=== PATIENT | male | born 1965 | race Caucasian/White ===

== ENCOUNTER 2023-12-16 15:55 | Emergency (ER) | payer MEDICARE, OTHER, SELFPAY ==
[2023-12-16 15:59] VITALS: BP 96/72
[2023-12-16 16:00] VITALS: BP 96/72
[2023-12-16 16:04] LABS: Glucose - Point of Care 91 mg/dl (70-99)
[2023-12-16 16:12] LABS: % Basophils 0.4 % (0-2); % Immature Granulocytes 0.4 % (0-0.5); % Lymphocytes 13.6 % (20.5-51.1); % Monocytes 11.5 % (1.7-9.3); % Neutrophils 72.1 % (42.2-75.2); Absolute Eosinophils 0.1 10^3/uL (0-0.7); Absolute Lymphocytes 0.7 10^3/uL (1.2-3.4); Absolute Monocytes 0.6 10^3/uL (0.1-0.6); Absolute Neutrophils 3.9 10^3/uL (1.4-6.5); Hematocrit 33.9 % (39.0-52.0); Hemoglobin 11.1 g/dL (13.0-18.0); Mean Corp Hgb Conc. 32.7 g/dL (33.0-37.0); Mean Corpuscular Hgb 29.9 pg (27.0-31.0); Mean Corpuscular Volume 91.4 fL (80.0-94.0); Mean Platelet Volume 10.2 fL (7.4-10.4); Nucleated Red Blood Cells % 0 % (-); Platelet Count 163 10^3/uL (130-400); Red Blood Cell Count 3.71 10^6/uL (4.70-6.10); Red Cell Dist. Width 18.9 % (11.5-14.5); White Blood Cell Count 5.5 10^3/uL (4.8-10.8)
[2023-12-16] MEDS: COREG 3.125 MG PO (16:21)
[2023-12-16 16:28] LABS: ALT (SGPT) 14 U/L (0-50); AST (SGOT) 22 U/L (17-59); Albumin 3.6 g/dl (3.5-5.0); Alkaline Phosphatase 77 U/L (38-126); Blood Urea Nitrogen 36 mg/dl (9-20); Calcium 7.9 mg/dl (8.4-10.2); Carbon Dioxide 25 mmol/L (22-30); Chloride 103 mmol/L (98-107); Glucose 87 mg/dl (70-99); Sodium 136 mmol/L (135-145); Total Bilirubin 0.8 mg/dl (0.2-1.3); Total Protein 6.2 g/dl (6.3-8.2); eGFR 9.71
[2023-12-16 16:36] LABS: Magnesium 1.5 mg/dl (1.6-2.3)
[2023-12-16 17:01] VITALS: BP 93/81
--- NOTE | 2023-12-16 17:20 | ED.GENMED ---
History of Present Illness
General
Chief Complaint: Heart Rate Problem
Source: patient
Exam Limitations: none
Time Seen by Provider: 12/16/23 16:02
Nursing documentation reviewed up to this point in time: agreed with
Travel History
Have you had any contact with someone who has COVID-19?: No
Do you have any symptoms of coronavirus? Fever > 100 degrees, chills, cough, shortness of breath, sore throat, loss of taste or smell, muscle aches, or headache?: No
History of Present Illness
History of Present Illness:
Patient with history of chronic atrial fibrillation on 81 mg aspirin daily, along with history of end-stage renal disease on hemodialysis (Saturday, Saturday, Saturday), [facility] from [facility] secondary to increased heart rate noted by
nursing staff, after returning from his dialysis session this morning. Patient however, has no complaints. Denies chest pain. Denies chest palpitations. Denies nausea or vomiting. Denies dizziness. Denies weakness. Denies recent illness.
Patient does not wish to receive any further treatment to ED, and would like to be discharged back to [facility].
Past History
Past History
ED Past Medical History: CHF, HTN, Hypercholesterolemia, Renal failure and Psychiatric
ED Past Surgical History: Other
Social History
Tobacco: Non-smoker
Alcohol: None
Drug: None
Personal:
Living: [facility]
Employment: Other
Family History
Family History: Other
Review of Systems
Review of Systems
Allergies reviewed?: Yes
All Other Systems: ROS reviewed and negative except as documented in HPI and ROS
Constitutional: Reports no symptoms; Denies fever
EENT: Reports no symptoms
Respiratory: Reports no symptoms; Denies trouble breathing
Cardiac: Reports no symptoms; Denies chest pain or palpitations
ABD/GI: Reports no symptoms
Musculoskeletal: Reports no symptoms
Skin: Reports no symptoms
Neurological: Reports no symptoms; Denies dizzy
Phy Exam
Physical Exam
Physical Exam:
Physical Exam
General: no apparent distress, not acutely ill. afebrile. tachycardic
Head: nc/at. eomi
Neck: supple. no meningeal signs.
Heart: tachycardic, irregularly irregular, no murmur. equal radial pulses.
Lungs: no acute respiratory distress. clear bilaterally
Abdomen: normal bowel sounds. not tender.
Neuro: alert and oriented. no focal neurological deficits
Skin: no rash
Psychiatric: well kept. interactive and cooperative
Extremities: no edema. no calf tenderness.
Course
Orders/Labs/Results
Orders:
Orders
12/16/23 15:58
Electrocardiogram (*1) Urgent
Reason for Study: Chest Pain
Cardiac Monitoring- Treatment ONCE
EKG- Treatment ONCE
IV Insert/Care/Rem.- Treatment PRN
CR Chest - 2 Views Urgent
Comment:
Reason For Exam: tachycardia
12/16/23 16:03
Complete Blood Count/With Diff Urgent
Comprehensive Metabolic Panel Urgent
Magnesium Urgent
Comment: ADD
TSH Reflex To Free T4 Urgent
Comment: ADD
12/16/23 16:11
Carvedilol [Coreg] 3.125 mg PO NOW STA
12/16/23 16:20
Add On- LAB Urgent
Tests Added?: magnesium, TSH to reflex free T4
12/16/23 16:27
Troponin I Urgent
12/16/23 17:16
Diltiazem HCl [Cardizem] 10 mg IV NOW STA
12/16/23 17:30
Diltiazem 125 mg/125 ml Nss [Cardizem] 125 mg in 125 ml IV PER PROTOCOL
Initial dose in mg/hr, then titrate:: 5
Titrate to keep:: Heart rate 80-100 bpm
Titrate by mg/hr:: 5 mg/hr
Frequency of titrations (minutes):: 15
Maximum dose in mg/hr:: 15
Abnormal Lab Results
12/16/23 12/16/23
16:03 16:27
RBC 3.71 L 10^6/uL
(4.70-6.10)
Hgb 11.1 L g/dL
(13.0-18.0)
Hct 33.9 L %
(39.0-52.0)
MCHC 32.7 L g/dL
(33.0-37.0)
RDW 18.9 H %
(11.5-14.5)
Absolute Lymphs (auto) 0.7 L 10^3/uL
(1.2-3.4)
Lymphocytes % 13.6 L %
(20.5-51.1)
Monocytes % 11.5 H %
(1.7-9.3)
BUN 36 H mg/dl
(9-20)
Creatinine 6.2 H* mg/dL
(0.7-1.3)
Calcium 7.9 L mg/dl
(8.4-10.2)
Magnesium 1.5 L mg/dl
(1.6-2.3)
Troponin I 1.940 H* ng/ml
Total Protein 6.2 L g/dl
(6.3-8.2)
12/16/23 16:03
12/16/23 16:03
Vital Signs
Initial and Last Documented VS:
Initial Vital Signs
Pulse Resp
133 22
12/16/23 15:58 12/16/23 15:58
Last Documented Vital Signs
Temp Pulse Resp BP Pulse Ox
98.5 F 120 24 92/78 96
12/16/23 15:59 12/16/23 20:00 12/16/23 20:00 12/16/23 20:01 12/16/23 20:02
MDM/Problems Addressed
MDM/Problems Addressed:
Pt found to be in rapid a.fibrillation, with mild hypotension. However, patient without any complaints. Discussed admission to the hospital for better rate control and to discuss anticoagulation, as he was told to stop anticoagulation by 'a doctor'.
Unfortunately, despite risk of CVA and potential worsening condition, patient adamant about being discharged back to [facility] tonight. Will discuss with his physician at [facility] regarding anticoagulation.
*Critical Care Note
Total Time (30-74mins, 75-104mins- exclusive of procedures): Not Applicable
ED Attending Note
-
Portions of this chart may have been created with voice recognition software.� Occasional wrong word or��sound alike� substitutions may have occurred due to the inherent limitations of voice recognition software.
Discharge Plan
Departure
Patient Disposition: Care Home/SNF
Date of Disposition: 12/16/23
Time of Disposition: 17:28
Discharge Problem:
Atrial fibrillation
Instructions: Atrial Fibrillation (DC)
Prescriptions:
No Action
bupropion HCl 150 mg Tablet Sustained-Release 12 Hr
150 mg PO DAILY
ropinirole 1 mg Tablet
1 mg PO HS
melatonin 3 mg Tablet
3 mg PO HSPRN PRN (Reason: insomnia)
aspirin 81 mg Tablet,Chewable
81 mg PO DAILY
calcitriol [Rocaltrol] 0.25 mcg Capsule
0.25 mcg PO DAILY
amiodarone 200 mg Tablet
200 mg PO DAILY
Patient Comments:
12/16/2023: taken w/ 100mg = 300mg
acetaminophen 325 mg Tablet
650 mg PO Q6HPRN PRN (Reason: mild pain/temp>100.4)
carvedilol 3.125 mg Tablet
3.125 mg PO DAILY
cyanocobalamin (vitamin B-12) 500 mcg Tablet
1,000 mcg PO DAILY
atorvastatin [Lipitor] 80 mg Tablet
80 mg PO HS
midodrine 5 mg Tablet
5 mg PO Q8HPRN PRN (Reason: SBP<100)
midodrine 5 mg Tablet
5 mg PO MOWEFR
bisacodyl [Dulcolax (bisacodyl)] 10 mg Suppository
10 mg VT DAILYPRN PRN (Reason: if MOM ineffective)
calcium acetate(phosphat bind) 667 mg Capsule
2,001 mg PO TID
ferrous sulfate 325 mg (65 mg iron) Tablet
325 mg PO MOWEFR
sorbitol 70 % Solution
30 ml PO DAILYPRN PRN (Reason: constipation)
pramipexole 1 mg Tablet
1 mg PO DAILY
B complex with C 20-folic acid 1 mg Capsule
1 cap PO DAILY
sodium polystyrene sulf-sorbtl 15-20 gram/60 mL Suspension
60 ml PO DAILYPRN PRN (Reason: missed dialysis days)
pantoprazole 40 mg tablet,delayed release (DR/EC)
40 mg PO BID Qty: 60 0RF
loperamide 2 mg Tablet
4 mg PO Q6H PRN (Reason: diarrhea)
B complex-vitamin C-folic acid 0.8 mg Tablet
1 tab PO DAILY
amiodarone 100 mg tablet
100 mg PO DAILY
Patient Comments:
12/16/2023: taken w/ 200mg = 300mg
Referrals:
UNKNOWN - PT DOES,NOT KNOW [Unknown Provider] -
Activity Restrictions/Additional Instructions:
As discussed, you are being discharged back to [facility], as she refused further care at [facility]. Upon returning to [facility], you must speak with your physician regarding initiation of blood thinning medication, as chronic atrial
fibrillation will put you at significant risk for developing potential stroke in the future.
Interventions
Interventions:
*Risk Screen - Suicide Last Done: 12/16/23 15:59
*General Assessment Last Done: 12/16/23 15:59
*Neglect/Abuse Screening Last Done: 12/16/23 15:59
ED- Fall Risk Assessment Last Done: 12/16/23 16:06
*ED COVID-19 Vaccine History Last Done: 12/16/23 21:50
*Nursing Disposition Last Done: 12/16/23 21:50
ED- Cardiac Assessment Last Done: 12/16/23 16:06
ED- Pulmonary Assessment Last Done: 12/16/23 16:06
Discharge Date and Time
Discharge Date/Time: 12/16/23 21:50
Print Language: [id number]
[2023-12-16 17:28] LABS: TSH Reflex To Free T4 1.58 uIU/ml (0.47-4.68)
[2023-12-16] MEDS: CARDIZEM 125 IV (18:58)
[2023-12-16 20:00] VITALS: BP 92/78
[2023-12-16 20:01] VITALS: BP 92/78
== END 2023-12-16 21:50 ==
LOC: EMR 15:55
PROVIDERS: EMERGENCY PHYSICIAN Emergency Medicine; FAMILY PHYSICIAN Internal Medicine
DX: I48.20 Chronic atrial fibrillation, unspecified (principal); N18.6 End stage renal disease
CPT/HCPCS: 99285; 96374; 71046; 80053; 82962; 83735; 84443; 84484; 85025; 93005